=== PATIENT | female | born 1990 | race Two or more races ===

== ENCOUNTER 2023-03-19 01:28 | Emergency (ER) | payer MEDICAID ==
[~2023-03-19] VITALS: Ht 162.6 cm; Wt 88.3 kg
[2023-03-19 01:49] VITALS: BP 136/75; PULSE 131; RESP 20; TEMP 98.4; O2SAT 95
[2023-03-19 03:54] LABS: COVID19 ANTIGEN SOFIA FIA NEGATIVE (NEGATIVE); Rapid Influenza A Negative (Negative); Rapid Influenza B Negative (Negative); Rapid Strep A Screen-Throat Positive
[2023-03-19] MEDS ORDERED: AMOX500T3 PO (04:02)
== END 2023-03-19 04:27 | disposition home or self-care (01) ==
LOC: ER 01:28
DX: J02.0 Streptococcal pharyngitis (principal); Z20.822 Contact with and (suspected) exposure to COVID-19
CPT/HCPCS: 36415; 87426; 87804; 87880